=== PATIENT | male | born 1970 | race Caucasian/White ===

== ENCOUNTER → 2019-08-06 11:58 | Outpatient (BNVA) | payer OTHER, SELFPAY | PROVIDERS: Family Provider Electrodiagnostic Medicine; Visit Provider Psychiatry & Neurology Psychiatry | DX: F43.12 Post-traumatic stress disorder, chronic (principal); F33.2 Major depressive disorder, recurrent severe without psychotic features; F15.21 Other stimulant dependence, in remission; F63.81 Intermittent explosive disorder | CPT/HCPCS: 99204 ==

== ENCOUNTER 2020-01-08 13:49 | Emergency (ER) | payer OTHER, SELFPAY ==
[2020-01-08 14:29] VITALS: BP 143/113; PULSE 117; RESP 16; TEMP 36.6; O2SAT 98; BMI 35.2
--- NOTE | 2020-01-08 15:24 | W.ED.GENADLT ---
HPI - General Adult General: Chief complaint: General Medical Stated complaint: wants help to stop doing meth Time Seen by Provider: 01/08/20 15:10 History of Present Illness: HPI narrative: Patient wants nowhere and go for detox. MD complaint: Methamphetamine abuse Onset (ago): year(s) Associated symptoms: Deny chest pain, dyspnea, headache(s), nausea, rash or vomiting Review of Systems Const: Denies: fever(s), chills or body aches Eyes: Denies: change in vision or blurry vision ENMT: Denies: throat pain or nasal congestion Card: Denies: chest pain or dyspnea on exertion Resp: Denies: dyspnea, productive cough or non-productive cough GI: Denies: abdominal pain, nausea or vomiting : Denies: difficulty urinating Musc: Denies: extremity pain Skin/Breast: Denies: rash Neuro: Denies: headache(s) Psych: Reports: other (Patient requesting methamphetamine detoxification); Denies: anxiety or depression Aayush/Lymph: Denies: easy bruising PFSH ED PFSH: Social History (Updated 01/08/20 @ 14:34 by Ha Madison RN) Smoking and tobacco status: current every day smoker cigars Cigars smoked per week: 14 Years smoked cigars: 5 Quit status (tobacco): not considering quitting Second hand smoke exposure: No Smoking risk assessment/counseling performed?: No Alcohol intake: never Substance/Drug Use: current Substance/Drug use frequency: daily Substance/Drug use type: Amphetamines and Methamphetamine Current gender identity: Male Physical Exam Const: COMMON NORMALS: no acute distress and patient oriented x3 Neuro: COMMON NORMALS: patient oriented x3 Psych: COMMON NORMALS: mental status grossly normal Course Vital Signs: Vital signs: Vital Signs Temperature 97.9 F 01/08/20 14:29 Pulse Rate 117 H 01/08/20 14:29 Respiratory Rate 16 01/08/20 14:29 Blood Pressure 143/113 01/08/20 14:29 Pulse Oximetry 98 01/08/20 14:29 Discharge Plan Discharge Patient Disposition: Home Clinical Impression: Methamphetamine abuse Condition: Stable Prescriptions: No Action No Known Home Medications RF: 0 Discharge Orders: Discharge Order (Routine); Ordered 01/08/20 Ordered By: Maximus Yuen Referrals: Kermit Gallardo DO [Primary Care Provider] - Discharge Diet: Usual diet Discharge Activity: Resume usual activity Patient Instructions: Methamphetamine Abuse (ED) Activity Restrictions/Additional Instructions: [facility] here in town for detoxification are can go to facilities outside of town at your choice. Coding Level of Care Code ED License And Permit Specialist for Raheem Elder
== END 2020-01-08 15:35 | disposition home or self-care (01) ==
PROVIDERS: Emergency Provider Nurse Practitioner Family; PCP Electrodiagnostic Medicine
DX: F15.10 Other stimulant abuse, uncomplicated (principal); F17.210 Nicotine dependence, cigarettes, uncomplicated
CPT/HCPCS: 12345; 99281